=== PATIENT | male | born 1985 | race Caucasian/White ===

== ENCOUNTER 2016-09-30 17:29 | Emergency (ER) | payer SELFPAY ==
--- NOTE | 2016-10-03 08:22 | ER ---
ADMIT: 09/30/2016 RM/LOC: [facility] MR#: [id number] [facility] [address] [place] [id number] TAMEKA SOLIMAN [id number] [place] [address] Emergency Room Report SEX: M AGE: 31 : 1985 DATE: 09/30/2016 TIME: 1729 hours. Please refer to my T-sheet for complete H and P. Briefly, the patient is a 31-year-old, comes in with reflux symptoms and his throat feels full. Has been feeling lousy for a while. He actually has appointment to be have an endoscopy done on Monday, but he chews over a can a day, drinks lot of caffeine. He has been taking Nexium [id number]. PHYSICAL EXAMINATION: VITAL SIGNS: Stable. HEENT: His throat is clear. NECK: Soft, supple. No thyromegaly. LUNGS: Clear. SKIN: No rash. EMERGENCY DEPARTMENT COURSE: I gave him a dose of Protonix and Carafate. Had a long discussion. He is ready for discharge. ASSESSMENT: 1. Gastroesophageal reflux disease. 2. Nicotine abuse. PLAN: Keep his appointment to get scoped Monday. Stop smoking. Return if worse. Decrease caffeine, Carafate, and double his Nexium. Noble Armendariz MD/ morena JOB #: [id number] CC: Noble Armendariz MD, Attending Physician Santosh Alvarenga MD, Family Physician . [facility]
== END 2016-09-30 18:06 | disposition home or self-care (01) ==
LOC: ER 17:29
DX: K21.9 Gastro-esophageal reflux disease without esophagitis (principal); F17.220 Nicotine dependence, chewing tobacco, uncomplicated; Z79.899 Other long term (current) drug therapy